=== PATIENT | male | born 1940 | race Asian ===

== ENCOUNTER 2023-05-08 20:28 | Emergency (ER) | payer MEDICARE, SELFPAY ==
[2023-05-08] VITALS (16 sets, daily range): BP systolic 146–194; BP diastolic 81–85; PULSE 50–62; RESP 16; TEMP 37.2; O2SAT 94–97; BMI 30.3
--- NOTE | 2023-05-08 21:25 | CRLHL7_ITS ---
For Patients: As a result of the Century Cures Act, medical imaging exams and procedure reports are released immediately into your electronic medical record. You may view this report before your referring provider. If you have questions, please contact your health care provider. INDICATION: Right leg pain. TECHNIQUE: Right knee 2 views. COMPARISON: None. FINDINGS: No acute fractures or malalignment. No joint effusion. Joint spaces are maintained. Soft tissues are unremarkable. IMPRESSION: No acute osseous abnormality. Dictated by Umberto Wilson MD @ 05/09/2023 12:26:00 AM (Electronically Signed)
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
--- NOTE | 2023-05-08 21:25 | CRLHL7_ITS ---
For Patients: As a result of the Century Cures Act, medical imaging exams and procedure reports are released immediately into your electronic medical record. You may view this report before your referring provider. If you have questions, please contact your health care provider. INDICATION: Right leg pain. TECHNIQUE: Right tibia and fibula 2 views. COMPARISON: None. FINDINGS: No acute fracture. Joint alignment is maintained. Plantar calcaneal spur. Stranding posterior to the tibiotalar joint. IMPRESSION: 1. No acute osseous abnormality. 2. Stranding posterior to the tibiotalar joint, nonspecific. Dictated by Umberto Wilson MD @ 05/09/2023 12:29:25 AM (Electronically Signed)
[2023-05-08 21:56] LABS: Basophils Absolute Auto 0.05 K/uL (0.00-0.30); Basophils Percent Auto 0.6 % (0.0-3.0); Eosinophils Absolute Auto 0.59 K/uL (0.00-0.50); Eosinophils Percent Auto 6.5 % (0.0-7.0); Hematocrit 47.9 % (37.0-53.0); Hemoglobin* 16.2 gm/dL (13.5-17.5); Immature Granulocytes Abs Auto 0.06 K/uL (0.00-0.30); Immature Granulocytes Pct Auto 0.7 %; Lymphocytes Percent Auto 16.1 % (20-44); Mean Corpuscular HGB Conc 34 gm/dL (32-36); Mean Corpuscular Hemoglobin 29 pg (26-34); Mean Corpuscular Volume 86 fL (80-100); Monocytes Percent Auto 8.7 % (0.0-11.0); Neutrophils Absolute Auto 6.13 K/uL (1.7-7.0); Neutrophils Percent Auto 67.4 % (42.0-72.0); Platelet Count* 186 K/uL (140-440); RDW Coefficient of Variation % 13.4 % (11.5-15.5); Red Blood Count 5.55 m/uL (4.30-5.90); White Blood Count* 9.08 K/uL (4.50-11.00)
[2023-05-08 22:10] LABS: Slide Review Reflex No
[2023-05-08 22:11] LABS: Chloride* 106 mmol/L (96-114); Potassium* 3.7 mmol/L (3.6-5.1); Sodium* 138 mmol/L (135-149)
[2023-05-08 22:14] LABS: Anion Gap 7 mEq/L (7-15); Blood Urea Nitrogen* 15 mg/dL (7-30); Carbon Dioxide* 25 mmol/L (20-32); Creatinine* 1.1 mg/dL (0.5-1.5); Est. Creatinine Clearance* 44.07; Estimated Glomerular Filt Rate 67 ml/min; Glucose* 131 mg/dL (60-115)
[2023-05-08 22:15] LABS: Calcium* 8.9 mg/dL (8.4-10.6)
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
[2023-05-08] MEDS: HYDROCODONE-ACETAMIN 5-325 MG 1 TAB PO (22:39)
[2023-05-08] MEDS: ONDANSETRON ODT 4 MG TAB PO (22:40)
== END 2023-05-09 02:05 | disposition home or self-care (01) ==
PROVIDERS: Emergency Provider Emergency Medicine
DX: M79.661 Pain in right lower leg (principal)
CPT/HCPCS: 36415; 73560; 73590; 74177; 80048; 81001; 85025; 99284; A9270; Q9967